=== PATIENT | female | born 1985 | race Asian ===

== ENCOUNTER → 2016-08-16 | Outpatient (CLI) | payer OTHER ==
[~2016-08-16] MED LIST: Iron PO; methimazole PO; vitamin c PO
--- NOTE | 2016-08-16 16:20 | DIAGNOSTIC IMAGING REPORT ---
RIGHT UPPER EXTREMITY VENOUS DOPPLER HISTORY: R ARM PAIN, R/O DVT, STAT Right COMPARISON STUDY: None. FINDINGS: The right internal jugular vein is patent. There is normal flow within the right subclavian vein. There is normal flow and compressibility within the right axillary, basilic, brachial, radial, ulnar, and visualized cephalic veins. No sonographic abnormality within the upper arm. IMPRESSION: No DVT within the right upper extremity. Electronically signed by: Mingo Pineda M.D. 08/16/2016 4:18 PM Dictated Date/Time: 08/16/2016 4:18 PM
== END | disposition home or self-care (01) ==
LOC: C.ULTR 15:38
PROVIDERS: ATTEND Internal Medicine
DX: M79.601 Pain in right arm (principal)